=== PATIENT | female | born 1980 ===

== ENCOUNTER 2017-05-16 09:32 | Emergency (ER) | payer MEDICAID ==
[2017-05-16 09:39] VITALS: TEMP 98.7
[2017-05-16] MEDS ORDERED: Naproxen 550 mg Tab PO STA (10:15)
--- NOTE | 2017-05-16 10:19 | ED PDOC ---
Arrival/HPI - General Chief Complaint: Back Pain Time Seen by Provider: 05/16/17 10:14 Historian: Patient - History of Present Illness Narrative History of Present Illness (Text): 05/16/17 10:14 This 37 yo female who denies pmh, presents to this Emergency department complaining of left sided neck pain/cramping since this morning. Patient denies trauma, headache, fever, sore throat, sinuses pressure, toothache, dysphagia, sob, cp, abdominal pain, urinary symptoms, dizziness, or abnormal gait. Time/Duration: Other (see hpi) Context: Home Past Medical History - Provider Review Nursing Documentation Reviewed: Yes - Psychiatric Hx Psychophysiologic Disorder: No Hx Substance Use: No Family/Social History - Physician Review Nursing Documentation Reviewed: Yes Family/Social History: Other (noncontributory) Smoking Status: Never Smoked Hx Alcohol Use: No Hx Substance Use: No Allergies/Home Meds Allergies/Adverse Reactions: Allergies No Known Allergies Allergy (Verified 05/16/17 09:35) Review of Systems - Review of Systems Constitutional: Normal. absent: Fatigue, Weight Change, Fevers Eyes: Normal ENT: Normal. absent: Sore Throat, Rhinorrhea Respiratory: Normal. absent: SOB, Cough Cardiovascular: Normal. absent: Chest Pain Gastrointestinal: Normal. absent: Abdominal Pain, Nausea, Vomiting Genitourinary Female: Normal. absent: Dysuria, Frequency, Hematuria Musculoskeletal: Neck Pain (see hpi). absent: Back Pain Skin: Normal. absent: Rash Neurological: Normal. absent: Headache, Dizziness, Focal Weakness, Gait Changes , Speech Changes, Facial Droop, Disequilibrium, Seizure Endocrine: Normal Hemo/Lymphatic: Normal Psychiatric: Normal Physical Exam Vital Signs Temp Pulse Resp BP Pulse Ox 05/16/17 09:35 98.7 F 83 16 128/83 99 05/16/17 09:33 98.7 F 83 16 128/83 99 Temperature: Afebrile Blood Pressure: Normal Pulse: Regular Respiratory Rate: Normal Appearance: Positive for: Well-Appearing, Non-Toxic, Comfortable Pain Distress: None Mental Status: Positive for: Alert and Oriented X 3 - Systems Exam Head: Present: Atraumatic, Normocephalic Pupils: Present: PERRL Extroacular Muscles: Present: EOMI Conjunctiva: Present: Normal Ears: Present: Normal, NORMAL TM Mouth: Present: Moist Mucous Membranes, Normal Lips, Normal Tounge, Normal Teeth. No: Drooling, Trismus Pharnyx: Present: Normal. No: ERYTHEMA, EXUDATE, TONSILS ENLARGED Nose (External): Present: Atraumatic Nose (Internal): Present: Normal Inspection Neck: Present: Paraspinal Tenderness (mild left paravertebral muscle tenderness. no skin rash. No vertebral point tenderness. No vertebral step off.). No: Meningeal Signs, MIDLINE TENDERNESS Respiratory/Chest: Present: Clear to Auscultation, Good Air Exchange. No: Respiratory Distress, Accessory Muscle Use, Wheezes, Retracting, Rhonchi Cardiovascular: Present: Regular Rate and Rhythm, Normal S1, S2. No: Murmurs Abdomen: Present: Normal Bowel Sounds. No: Tenderness, Distention, Peritoneal Signs, Rebound, Guarding Back: Present: Normal Inspection. No: CVA Tenderness Upper Extremity: Present: Normal Inspection, Normal ROM Lower Extremity: Present: Normal Inspection, Normal ROM Neurological: Present: GCS=15, CN II-XII Intact, Speech Normal, Motor Func Grossly Intact, Normal Sensory Function, Normal Cerebellar Funct, Gait Normal Skin: Present: Warm, Dry, Normal Color. No: Rashes Psychiatric: Present: Alert, Oriented x 3, Normal Insight, Normal Concentration Medical Decision Making ED Course and Treatment: 05/16/17 11:54 Re-evaluation. Patient feels better. Discussed results and plan with patient who expresses understanding. All questions answered and there is agreement with the plan to discharge home with instructions. Patient stable for discharge. Return if symptoms persist or worsen. Patient feels better. She was recommended to return to Emergency department if she develops headache, dizziness, fever or worsening of neck pain. Re-evaluation Time: 11:54 Reassessment Condition: Re-examined, Improved - Medication Orders Current Medication Orders: Discontinued Medications Diazepam (Valium) 5 mg PO ONCE ONE PRN Reason: Protocol Stop: 05/16/17 10:16 Last Admin: 05/16/17 10:22 Dose: 5 mg Naproxen (Anaprox Ds) 550 mg PO STAT STA Stop: 05/16/17 10:16 Last Admin: 05/16/17 10:23 Dose: 550 mg Disposition/Present on Arrival - Present on Arrival Any Indicators Present on Arrival: No History of DVT/PE: No History of Uncontrolled Diabetes: No Urinary Catheter: No History of Decub. Ulcer: No History Surgical Site Infection Following: None - Disposition Have Diagnosis and Disposition been Completed?: Yes Diagnosis: Cervical muscle strain, Neck pain Disposition: HOME/ ROUTINE Disposition Time: 11:55 Patient Plan: Discharge Condition: GOOD Discharge Instructions (ExitCare): Cervical Muscle Strain Additional Instructions: Call private doctor for follow up visit in 1-2 days. Take medication as instructed with food. Return to emergency if you develop fever, head aches, or worsening of your symptoms. Muscle relaxer can make you feel drowsy, so do not drive or operate machinery for at least 10 hours. Prescriptions: diaZEpam [Valium] 5 mg PO DAILY #5 tab Famotidine [Pepcid] 40 mg PO DAILY #10 tablet Naproxen 500 mg PO BID PRN #14 tablet PRN Reason: Pain, Severe (8-10) Referrals: Cher Dean DO [Primary Care Provider] - Follow up with primary Forms: [employer] ([place])
[2017-05-16 12:05] VITALS: BP 118/63; PULSE 79; RESP 18; O2SAT 98
== END 2017-05-16 12:07 | disposition home or self-care (01) ==
LOC: ED 09:32
DX: S16.1XXA Strain of muscle, fascia and tendon at neck level, initial encounter (principal); X58.XXXA Exposure to other specified factors, initial encounter; M54.2 Cervicalgia